=== PATIENT | female | born 1955 | race Caucasian/White ===

== ENCOUNTER 2019-03-23 08:51 | Outpatient (CLI) | payer BC ==
[~2019-03-23] VITALS: Ht 162.6 cm; Wt 72.9 kg
[~2019-03-23 08:51] MED LIST: ALTACE 5MG5 MG PO; ASPIRIN 32325 MG/TA1 PO; ASPIRIN 32325 MG/TAB PO; ASPIRIN E.C. 8181 MG PO; FISH OIL 1000MG1 CAP PO; MULTIPLE VITAMI1 CAP PO; NO HOME MEDICATIONS; NORCO 325 MG-51 TAB PO; TOPROL XL 25MG25 MG PO
[2019-03-23 09:37] LABS: HEMATOCRIT 40.6 % (37.0-47.0); HEMOGLOBIN 14.2 g/dl (12.5-16.0); MEAN CELL VOLUME 92 fl (80.0-100.0); MEAN CORPUSCULAR HEMOGLOBIN 32 pg (27.0-31.0); MEAN CORPUSCULAR HGB CONC 35 g/dl (33.0-37.0); MEAN PLATELET VOLUME 10.4 fl (7.4-10.4); PLATELET COUNT 160 K/mm3 (130-400); RED BLOOD COUNT 4.43 M/mm3 (4.10-5.30); REDCELL DISTRIBUTION WIDTH-CV 12.8 % (11.5-14.5)
[2019-03-23 09:46] LABS: CALCIUM 9.4 mg/dL (8.4-10.2); CREATININE, serum 0.78 (0.52-1.25); POTASSIUM 4.3 mmol/L (3.4-5.0)
[2019-03-23 09:51] LABS: INR 0.9 (0.8-3.0)
[2019-03-23] MEDS ORDERED: ASPIRIN 81M81 MG/TA2 PO (09:57)
[2019-03-23] MEDS ORDERED: TOPROL XL 25MG25 MG PO (09:57)
[2019-03-23] MEDS ORDERED: B-121000 MCG PO (09:59)
[2019-03-23] MEDS ORDERED: TURMERIC500 MG PO (09:59)
[2019-03-23 10:03] VITALS: BP 130/84; PULSE 55; TEMP 97
[2019-03-23] MEDS ORDERED: VITAMIN D 1001000 IU PO (10:03)
[2019-03-23 11:23] VITALS: BP 117/81; PULSE 55
[2019-03-23 11:40] VITALS: BP 126/76; PULSE 46
[2019-03-23 11:55] VITALS: BP 130/75; PULSE 44
[2019-03-23 12:10] VITALS: BP 128/76; PULSE 45
--- NOTE | 2019-03-23 12:33 | NUR ---
Discharge instructions given to pt.pt verbalizes understanding.INT removed,catheter tip intact.pt escorted out via wheelchair by this nurse.
== END 2019-03-23 12:49 | disposition home or self-care (01) ==
LOC: COL.RAD 08:51
PROVIDERS: Internal Medicine Cardiovascular Disease
DX: I35.2 Nonrheumatic aortic (valve) stenosis with insufficiency (principal); R93.1 Abnormal findings on diagnostic imaging of heart and coronary circulation
CPT/HCPCS: J2704; J7030